=== PATIENT | male | born 1955 | race American Indian/Alaskan Native ===

== ENCOUNTER 2017-02-04 17:00 | Inpatient (IN) | payer SELFPAY ==
[2017-02-04 17:51] LABS: Basophils % (Auto) 0.8 % (0.0-1.8); Eosinophils % (Auto) 0.7 % (0.0-4.3); Hematocrit 40.8 % (35.5-45.6); Hemoglobin 13.5 gm/dl (11.8-15.2); Mean Corpuscular HGB Conc 33 % (32-34); Mean Corpuscular Hemoglobin 29 pg (28-32); Mean Corpuscular Volume 88 fl (84-94); Platelet Count 282 K/mm3 (140-440); Red Blood Count 4.65 M/mm3 (3.65-5.03); Red Cell Distribution Width 15.2 % (13.2-15.2); White Blood Count 8.3 K/mm3 (4.5-11.0)
[2017-02-04 18:10] LABS: Anion Gap 23 mmol/L; BUN/Creatinine Ratio 16.92; Blood Urea Nitrogen 22 mg/dL (9-20); Calcium 9.2 mg/dL (8.4-10.2); Carbon Dioxide 21 mmol/L (22-30); Chloride 101.9 mmol/L (98-107); Glucose 238 mg/dL (75-100); Potassium 4.6 mmol/L (3.6-5.0); Sodium 141 mmol/L (137-145)
--- NOTE | 2017-02-04 19:16 | Emergency Department Report ---
Chief Complaint: Chest Pain Stated Complaint: CP Time Seen by Provider: 02/04/17 19:00 - HPI History of Present Illness: Patient here reports that he has chest pain ongoing on and off for over 2 weeks. He said that he has a history of diabetes and high blood pressure and when he has chest pain his blood pressure goes up. Patient blood pressure is 187/119 denies any headache or visual difficulties. Patient reports that chest pain is towards the attendant feels sore located to the center of his chest and he has some numbness to his left shoulder going down his elbow. He says he is short of breath with exertion. Denies any short of breath at this time. He said his chest pain was worse today but now it just feels sore. He said he took 4 baby aspirin. Patient diabetes and high blood pressure is managed at [facility]. He said he is on lisinopril 10 mg daily and metformin which she took today. He also reported that he was having some nausea. Patient does not have any diagnosis of heart disease and he has not been to doctor for chest pain. Patient denies any history of blood clot in his lungs or legs. Denies any recent surgery, denies cancer, denies hormonal therapy. Heart rate in triage is 94 but an EKG it's 112. - ROS Review of Systems: All systems are negative unless stated in HPI above - Exam Vital Signs: Vital Signs 02/04/17 17:24 Temperature 98.1 F Pulse Rate 94 H Respiratory 16 Rate Blood Pressure 187/119 O2 Sat by Pulse 97 Oximetry Vital Signs 02/04/17 02/04/17 17:24 19:20 Temperature 98.1 F Pulse Rate 94 H 98 H Respiratory 16 Rate Blood Pressure 187/119 O2 Sat by Pulse 97 Oximetry Apical heart rate is at 98 bpm Physical Exam: Gen.: He is a 61-year-old male well-nourished well-developed in no acute distress. Cardiovascular: S1, S2. Regular rate rhythm negative murmur. No chest wall tenderness. Capillary refill is less than 3 seconds. EKG revealed sinus tachycardia at 112. Apical pulse is at 98 bpm. Lungs: Clear to auscultate bilaterally, no rhonchi wheezes or rales. Normal work of breathing. Pulse ox is at 97% on room air MSE screening note: Focused history and physical exam performed. Due to findings the following was ordered: First troponin is negative. CBC stable. BMP stable except CO2 mild decrease at 21, BUN/creatinine elevated at 22 and blood glucose is at 238 which is elevated. ED Medical Decision Making - Lab Data Result diagrams: 02/04/17 17:35 02/04/17 17:35 - Medical Decision Making MDM: Patient screened by provider in triage area. Appropriate protocol initiated and patient to be seen in main ED by ED Disposition for MSE Condition: Stable Referrals: PRIMARY CARE, [Primary Care Provider] - 3-5 Days
--- NOTE | 2017-02-05 01:03 | Emergency Department Report ---
ED Chest Pain HPI - General Chief Complaint: Chest Pain Stated Complaint: CP Time Seen by Provider: 02/04/17 19:15 Source: patient, family, RN notes reviewed Mode of arrival: Wheelchair Limitations: No Limitations - History of Present Illness Initial Comments: This is a 61-year-old male. The patient has previously unknown to me. He reports a past medical history of hypertension, diabetes. The patient presents to the ER with 3 weeks of intermittent chest pain. The chest pain worsens with physical activity. It decreases with rest. It radiates to the left shoulder. When he experiences the chest pain he endorses diaphoresis. There is no leg pain. There is no leg swelling. Patient reports being admitted to the hospital over a little bit of a month ago, for "bacterial infection." He denies hematemesis, and bright red blood per rectum. He has taken aspirin within the past few days, he denies cocaine use. MD Complaint: chest pain -: Gradual Onset: during rest, during exertion Pain Location: left chest Pain Radiation: LUE Severity: moderate Quality: heaviness Consistency: intermittent Improves With: rest Worsens With: exertion re: diaphoresis Aspirin use within the Past 7 Days: (1) Yes - Related Data On Oral Contraceptives: No Allergies Allergy/AdvReac Type Severity Reaction Status Date / Time No Known Allergies Allergy Verified 02/04/17 17:31 Heart Score - HEART Score History: Highly suspicious EKG: Significant ST-depression Age: 45-65 Risk factors: > 3 risk factors or hx of atherosclerotic disease Troponin: > 3x normal limit HEART Score: 9 - Critical Actions Critical Actions: >7 pts:50-65% risk of adverse cardiac event. Early invasive measures ED Review of Systems ROS: Stated complaint: CP Other details as noted in HPI Constitutional: diaphoresis. denies: malaise Eyes: denies: vision change ENT: denies: epistaxis Respiratory: shortness of breath Cardiovascular: chest pain Gastrointestinal: denies: hematemesis, melena, hematochezia Genitourinary: denies: dysuria Musculoskeletal: denies: back pain Skin: denies: lesions Neurological: weakness Psychiatric: anxiety ED Past Medical Hx - Past Medical History Hx Hypertension: Yes Hx Diabetes: Yes - Social History Smoking Status: Current Some Day Smoker ED Physical Exam - General Limitations: No Limitations General appearance: alert, in no apparent distress - Head Head exam: Present: atraumatic, normocephalic - Eye Eye exam: Present: normal appearance, EOMI. Absent: nystagmus - ENT ENT exam: Present: normal exam, normal orophraynx, mucous membranes moist, normal external ear exam - Neck Neck exam: Present: normal inspection, full ROM. Absent: tenderness, meningismus - Respiratory Respiratory exam: Present: normal lung sounds bilaterally. Absent: respiratory distress, wheezes, rales, rhonchi, stridor, chest wall tenderness, accessory muscle use, decreased breath sounds, prolonged expiratory - Cardiovascular Cardiovascular Exam: Present: regular rate, normal rhythm, normal heart sounds. Absent: systolic murmur, diastolic murmur, rubs, gallop - GI/Abdominal GI/Abdominal exam: Present: soft, normal bowel sounds. Absent: distended, tenderness, guarding, rebound, rigid, pulsatile mass - Rectal Rectal exam: Present: deferred - Extremities Exam Extremities exam: Present: normal inspection, full ROM. Absent: normal capillary refill, calf tenderness - Back Exam Back exam: Present: normal inspection, full ROM. Absent: tenderness, CVA tenderness (R), CVA tenderness (L), muscle spasm, paraspinal tenderness, vertebral tenderness - Neurological Exam Neurological exam: Present: alert, oriented X3, normal gait, other (Extraocular movements intact. Tongue midline. No facial droop. Facial sensation intact to light touch in the V1, V2, V3 distribution bilaterally. 5 and 5 strength in 4 extremities.. Sensation is intact to light touch in 4 extremities.). Absent : motor sensory deficit - Psychiatric Psychiatric exam: Present: normal affect, normal mood - Skin Skin exam: Present: warm, dry, intact, normal color. Absent: rash ED Course Vital Signs 02/04/17 02/04/17 02/04/17 17:12 17:14 17:24 Temperature 98.1 F Pulse Rate 106 H 107 H 94 H Respiratory 16 Rate Blood Pressure 202/119 187/119 187/119 Blood Pressure [Left] O2 Sat by Pulse 97 97 97 Oximetry 02/04/17 02/05/17 02/05/17 19:20 00:56 01:00 Temperature 98.3 F Pulse Rate 98 H 113 H 105 H Respiratory 17 Rate Blood Pressure 181/109 Blood Pressure 181/109 [Left] O2 Sat by Pulse 99 Oximetry 02/05/17 02/05/17 02/05/17 01:10 01:20 01:30 Temperature Pulse Rate 107 H 108 H 105 H Respiratory 20 14 21 Rate Blood Pressure 181/109 181/109 181/109 Blood Pressure [Left] O2 Sat by Pulse 99 99 98 Oximetry 02/05/17 02/05/17 02/05/17 01:40 01:50 02:00 Temperature Pulse Rate 108 H 105 H 103 H Respiratory 17 25 H 19 Rate Blood Pressure 158/96 181/109 165/96 Blood Pressure 158/96 [Left] O2 Sat by Pulse 99 99 99 Oximetry 02/05/17 02/05/17 02/05/17 02:10 02:20 02:30 Temperature Pulse Rate 98 H 104 H 87 Respiratory 22 22 22 Rate Blood Pressure 165/96 165/96 165/96 Blood Pressure [Left] O2 Sat by Pulse 99 98 99 Oximetry 02/05/17 02/05/17 02:40 02:50 Temperature Pulse Rate 91 H 85 Respiratory 18 21 Rate Blood Pressure 165/96 165/96 Blood Pressure [Left] O2 Sat by Pulse 98 99 Oximetry - Reevaluation(s) Reevaluation #1: 02/05/17 01:43 No Plavix as per discussion with cardiology SHANITA score - Shanita Score Age > 65: (0) No Aspirin use within the Past 7 Days: (1) Yes 3 or more CAD Risk Factors: (1) Yes 2 or more Angina events in past 24 hrs: (1) Yes Known CAD with more than 50% Stenosis: (0) No Elevated Cardiac Markers: (1) Yes ST Deviation Greater than 0.5mm: (0) No SHANITA Score: 4 ED Medical Decision Making - Lab Data Result diagrams: 02/05/17 01:33 02/04/17 17:35 Vital Signs 02/04/17 02/04/17 17:24 19:20 Temperature 98.1 F Pulse Rate 94 H 98 H Respiratory 16 Rate Blood Pressure 187/119 O2 Sat by Pulse 97 Oximetry Labs 02/04/17 02/04/17 02/04/17 17:35 17:35 20:04 WBC 8.3 RBC 4.65 Hgb 13.5 Hct 40.8 MCV 88 MCH 29 MCHC 33 RDW 15.2 Plt Count 282 Lymph % (Auto) 17.5 [place] % (Auto) 7.2 Eos % (Auto) 0.7 Baso % (Auto) 0.8 Lymph # 1.4 [place] # 0.6 Eos # 0.1 Baso # 0.1 Seg Neutrophils % 73.8 H Seg Neutrophils # 6.1 Sodium 141 Potassium 4.6 Chloride 101.9 Carbon Dioxide 21 L Anion Gap 23 BUN 22 H Creatinine 1.3 Estimated GFR 56 BUN/Creatinine Ratio 16.92 Glucose 238 H Calcium 9.2 Troponin T < 0.010 0.494 H* D Triglycerides 161 H Cholesterol 260 H LDL Cholesterol Direct 178 H HDL Cholesterol 50 Cholesterol/HDL Ratio 5.20 02/04/17 23:23 WBC RBC Hgb Hct MCV MCH MCHC RDW Plt Count Lymph % (Auto) [place] % (Auto) Eos % (Auto) Baso % (Auto) Lymph # [place] # Eos # Baso # Seg Neutrophils % Seg Neutrophils # Sodium Potassium Chloride Carbon Dioxide Anion Gap BUN Creatinine Estimated GFR BUN/Creatinine Ratio Glucose Calcium Troponin T 1.610 H* D Triglycerides Cholesterol LDL Cholesterol Direct HDL Cholesterol Cholesterol/HDL Ratio - EKG Data -: EKG Interpreted by Me - EKG Data 02/05/17 01:41 EKG #1 demonstrates sinus tachycardia, left axis deviation, left ventricular hypertrophy, ST elevation in lead aVR, ST depression in the lateral and inferior leads. EKG #2 demonstrates sinus tachycardia, 102 bpm, left axis deviation, left ventricular hypertrophy, resolution of ST depressions and elevation on previous EKG. Chest pain-free, not consistent with STEMI - Radiology Data Radiology results: image reviewed interpreted by me: X-ray of the chest is negative - Medical Decision Making Differential diagnosis: Acute coronary syndrome, and STEMI Assessment and plan: 61-year-old male with chest pain for 3 weeks, no contraindications to systemic anticoagulation, chest pain-free at this time. Initial EKG concerning for either left main disease or triple vessel disease, repeat EKG demonstrates resolution of abnormalities. Patient will be given aspirin, started on heparin drip, and prescribed as needed nitroglycerin. Case discussed with cardiology, Dr. Villaseñor, the patient's history, physical, laboratory studies, EKG findings were relayed, he requests nothing by mouth. Probable catheterization in the morning. The case is presented to the Hospital physician, Dr. Burrell, who accepts the patient to his service for probable N- STEMI. Critical care attestation.: If time is entered above; I have spent that time in minutes in the direct care of this critically ill patient, excluding procedure time. ED Disposition Clinical Impression: NSTEMI (non-ST elevated myocardial infarction) Disposition: 09 OP ADMIT IP TO THIS HOSP Is pt being admited?: Yes Condition: Good
[2017-02-05] MEDS ORDERED: ASPIRIN PO ONE (01:09)
[2017-02-05] MEDS ORDERED: LOPRESSOR IV ONE ×2 (01:09→02:10)
[2017-02-05] MEDS ORDERED: NITROSTAT SL PRN (01:09)
[2017-02-05] MEDS ORDERED: HEPARIN 10,000 UNITS/10 ML IV ONE (01:09)
[2017-02-05] MEDS ORDERED: TYLENOL PO PRN (01:36)
[2017-02-05] MEDS ORDERED: MORPHINE IV PRN (01:37)
[2017-02-05] MEDS ORDERED: ZOFRAN IV PRN (01:37)
[2017-02-05] MEDS ORDERED: HEPARIN/ 0.45% NACL-25,000 UNIT/500 ML 25,000 UNIT/500 ML BAG IV SCH (02:00)
[2017-02-05 02:01] LABS: Hematocrit 39.5 % (35.5-45.6); Hemoglobin 13.3 gm/dl (11.8-15.2)
[2017-02-05] MEDS ORDERED: ASPIRIN ONE ×2 (02:09→09:18)
[2017-02-05] MEDS ORDERED: HEPARIN ONE (02:10)
[2017-02-05] MEDS ORDERED: MORPHINE ONE (02:11)
[2017-02-05 02:13] LABS: INR 1.03 (0.87-1.13)
[2017-02-05 02:14] LABS: Partial Thromboplastin Time 28.7 Sec. (24.2-36.6)
[2017-02-05] MEDS: NITRO-BID 2% TP SCH ×2 (02:20→07:22)
[2017-02-05] MEDS ORDERED: NITRO-BID 2% TP ONE (02:22)
[2017-02-05] MEDS ORDERED: HEPARIN/ 0.45% NACL-25,000 UNIT/500 ML 25,000 UNIT/500 ML BAG ONE (02:23)
[2017-02-05 06:01] LABS: Creatine Kinase MB 38.8 ng/mL (0.0-4.0)
--- NOTE | 2017-02-05 07:31 | XRay Report ---
ROUTINE CHEST, TWO VIEWS: HISTORY: Chest pain, shortness of breath. The trachea, heart, mediastinal contour, lung sabillon and bony thorax are unremarkable. IMPRESSION: Unremarkable chest x-ray.
--- NOTE | 2017-02-05 07:53 | Consultation ---
History of Present Illness Consult date: 02/05/17 Requesting physician: LG GARCIA Consult reason: abnormal cardiac enzymes, chest pain History of present illness: 61-year-old male with a past medical history of diabetes and hypertension who presented to [facility] emergency department complaining of chest pain that has been intermittent for the past 2 weeks. He reports that with the chest pain occurs he is forced to stop whatever he is doing. He reports that the chest pain occurs with minimal exertion. It is associated with shortness of breath and the inability to walk. A chest x-ray in the emergency department did not reveal any infiltrates or effusion. A 12-lead EKG initially on presentation in the emergency department revealed ST elevations in lead aVR with diffuse ST depressions inferiorly and across the precordium. The patient received some nitroglycerin with improvement of his symptoms and resolution of the ST elevations and ST depressions. Currently the patient is chest pain-free on heparin drip. The patient reports that he has been compliant with his medications however one of the chest pain occurs he checks his blood pressure at home and notices significant increases. In the emergency department the patient's initial blood pressure was 202/119. His troponins increased to 1.97. Past History Past Medical History: diabetes, hypertension Past Surgical History: Other (unknown) Social history: , lives with family Family history: other (sister from cardiac causes) Medications and Allergies Allergies Allergy/AdvReac Type Severity Reaction Status Date / Time No Known Allergies Allergy Verified 02/04/17 17:31 Active Meds: Active Medications Acetaminophen (Tylenol) 650 mg PO Q4H PRN PRN Reason: For Pain/Fever/Headache Last Admin: 02/05/17 07:22 Dose: 650 mg Aspirin (Aspirin) 325 mg PO QDAY KHALIF Heparin Sodium/Sodium Chloride (Heparin/ 0.45% Nacl-25,000 Unit/500 Ml) 25,000 unit in 500 mls @ 20 mls/hr IV TITRATE KHALIF; 1,000 UNITS/HR PRN Reason: Protocol Last Admin: 02/05/17 02:35 Dose: 1,000 units/hr, 20 mls/hr Morphine Sulfate (Morphine) 2 mg IV Q2H PRN PRN Reason: Pain, Moderate (4-6) Nitroglycerin (Nitrostat) 0.4 mg SL .Q5MIN PRN PRN Reason: Chest Pain Nitroglycerin (Nitro-Bid 2%) 1 inch TP QIDNTG [facility] PRN Reason: Protocol Last Admin: 02/05/17 07:22 Dose: 1 inch Ondansetron HCl (Zofran) 4 mg IV Q6H PRN PRN Reason: Nausea And Vomiting Review of Systems Constitutional: no weight loss, no weight gain, no fever, no chills, no sweats Ears, nose, mouth and throat: no decreased hearing, no nose pain, no nasal congestion, no sinus pressure Cardiovascular: chest pain, shortness of breath, dyspnea on exertion, high blood pressure, no orthopnea, no palpitations, no edema, no syncope, no lightheadedness, no leg edema Respiratory: no cough, no excessive sputum, no hemoptysis Gastrointestinal: no abdominal pain, no nausea, no vomiting, no BRBPR Genitourinary Male: no dysuria, no hematuria Rectal: no pain, no bleeding Musculoskeletal: neck pain, no neck stiffness, no limitation of motion, no gait dysfunction Integumentary: no rash, no pruritis Neurological: no weakness, no parathesias, no gait dysfunction Psychiatric: no anxiety, no memory loss Endocrine: no cold intolerance, no heat intolerance Hematologic/Lymphatic: no easy bruising, no easy bleeding Allergic/Immunologic: no urticaria, no allergic rhinitis Physical Examination Vital Signs Pulse BP Pulse Ox 106 H 202/119 97 02/04/17 17:12 02/04/17 17:12 02/04/17 17:12 General appearance: no acute distress HEENT: Positive: PERRL, EOMI Neck: Positive: neck supple, trachea midline Cardiac: Positive: Reg Rate and Rhythm Lungs: Positive: Normal Exam, clear to auscultation Neuro: Positive: Grossly Intact Abdomen: Positive: Unremarkable, Soft, Active Bowel Sounds Skin: Negative: Rash Extremities: Present: normal, lower extr. pulses (2+ dorsalis pedis pulses). Absent: edema Results 02/05/17 01:33 02/04/17 17:35 Cardiac Enzymes 02/05/17 Range/Units 04:53 CK-MB (CK-2) 38.8 H (0.0-4.0) ng/mL Coagulation 02/05/17 Range/Units 01:33 PT 14.0 (12.2-14.9) Sec. INR 1.03 (0.87-1.13) APTT 28.7 (24.2-36.6) Sec. CBC 02/05/17 Range/Units 01:33 Hgb 13.3 (11.8-15.2) gm/dl Hct 39.5 (35.5-45.6) % Plt Count 276 (140-440) K/mm3 - Imaging and Cardiology EKG: report reviewed (initial EKG with ST elevations in aVR and diffuse ST depressions) EKG interpretations - Telemetry EKG Rhythm: Sinus Tachycardia Assessment and Plan 61-year-old gentleman with a past medical history of diabetes and hypertension who presents with a non-ST elevation myocardial infarction. A 12-lead EKG on admission to the hospital revealed ST elevations in lead aVR with diffuse ST depressions. The patient was started on a heparin drip and given oral aspirin. He also has nitropaste in place. Plan for [facility] today Continue heparin gtt ASA start statin Plan for start beta taqueria, carvedilol
--- NOTE | 2017-02-05 08:46 | History and Physical Report ---
CHIEF COMPLAINT: Chest pain. HISTORY OF PRESENT ILLNESS: The patient is a 61-year-old male who has been having intermittent chest pain on and off going on for some weeks. Pain is in the precordial area radiating to the left shoulder area and associated with diaphoresis, shortness of breath, but no nausea or vomiting. Pain was relieved with pain medications. There was also no history of cough or fever. Pain is worse with physical activity and decreases with rest. PAST MEDICAL HISTORY: Pertinent for hypertension, diabetes mellitus, and recent bacterial infection. PAST SURGICAL HISTORY: Unremarkable. FAMILY HISTORY: Noncontributory. SOCIAL HISTORY: The patient smokes cigarettes, does not drink alcohol and does not use illicit drugs. MEDICATIONS: The patient's home medications are not known at this time. ALLERGIES: There are no known drug allergies. REVIEW OF SYSTEMS: CONSTITUTIONAL: There is no fever, no chills. Diaphoresis is present. HEENT: There is no headache or sore throat. CARDIOVASCULAR: There is chest pain, but no orthopnea. RESPIRATORY: Shortness of breath present. No cough. GASTROINTESTINAL: There is no nausea, no vomiting, no abdominal pain, diarrhea or constipation. NEUROLOGICAL: There is no numbness, no dizziness, no altered mental status. MUSCULOSKELETAL: There is no joint pain or swelling. DERMATOLOGICAL: There is no skin rash or itching. GENITOURINARY: There is no dysuria, hematuria, or flank pain. Rest of system review is normal. PHYSICAL EXAMINATION: GENERAL: At the time of exam, the patient was found to be alert, oriented x 3 and not in acute distress. VITAL SIGNS: Shows temperature of 98.1 degrees Fahrenheit, pulse of 94, respirations 16, blood pressure 187/119, O2 sat of 97% on room air. HEENT: Shows pupils to be equal, round, reactive to light and accommodation. Extraocular muscles are intact. NECK: Supple with no JVD or carotid bruit. CARDIOVASCULAR: Shows first and second heart sounds with no gallops or murmur. RESPIRATORY: Shows good air entry on both sides of the lung with no abnormal breath sounds. GASTROINTESTINAL: Show abdomen to be full, soft, and nontender with no organomegaly or rigidity. NEUROLOGIC: Shows no focal deficit. MUSCULOSKELETAL: Shows no joint swelling or tenderness. DERMATOLOGICAL: Show no skin rash. GENITOURINARY: Showing no costovertebral angle tenderness. PERTINENT LABORATORY DATA AND IMAGING STUDIES: The patient had chest x-ray done that shows no acute cardiopulmonary lesion. The patient had an EKG that shows some ST depressions. The patient's lab results show CBC with normal white count, normal hemoglobin and normal hematocrit with CBC differential showing slightly elevated segmented neutrophils of 73.8%. Coagulation studies was unremarkable and the patient's chemistry shows high blood glucose of 238 with a slightly elevated BUN of 22 and normal creatinine as well as slightly decreased GFR of 56. The patient's cardiac enzyme shows elevated troponin level of 1.610. The patient's lipid panel show high triglyceride of 161 with high cholesterol of 260 and elevated LDL cholesterol of 178. IMAGING STUDIES: The patient had a chest x-ray done that showed no cardiopulmonary lesion. DIAGNOSIS: NSTEMI, Non-ST elevated myocardial infarction. PLAN: The patient will be admitted as inpatient to telemetry. We will have cardiac enzymes, troponin, total CK, and CK-MB checked q. 6 hours x 2 more level. The patient will be on aspirin 325 mg by mouth daily and we will continue heparin protocol per Cardiology doctor in the Emergency Room. The patient will also be on Tylenol 650 mg by mouth every 4 hours for fever, headache and will have nitro paste 1 inch to anterior chest wall q. 6 hours. The patient will also be on IV morphine 2 mg every 2 hours as needed for pain and will be on IV Zofran 4 mg every 6 hours for nausea and vomiting. The patient will be on oxygen by nasal cannula at 2 liters per minute and we will continue Cardiology consult including by the Emergency Room with Dr. Aquiles Villaseñor. The patient will be n.p.o. for possible intervention by the household personal assistant in the morning. JOB# [id number] OCN/NTS
[2017-02-05] MEDS ORDERED: NACL 0.9% 500 ML 500 ML ONE (09:33)
[2017-02-05] MEDS ORDERED: HEPARIN/NS 5000 UNIT/500ML(CATH LAB) 1,000 ML IR ONE ×2 (09:43→10:36)
[2017-02-05] MEDS ORDERED: CALAN ONE (09:43)
[2017-02-05] MEDS ORDERED: VERSED ONE (09:44)
[2017-02-05] MEDS ORDERED: SUBLIMAZE ONE (09:44)
[2017-02-05] MEDS: XYLOCAINE 2% INFILTRATI ONE ×2 (09:55→10:07)
[2017-02-05] MEDS: HEPARIN 10,000 UNITS/10 ML ONE ×2 (09:56→10:18)
[2017-02-05] MEDS ORDERED: ASPIRIN PO SCH (10:00)
[2017-02-05] MEDS ORDERED: NITROGLYCERIN SYRINGE 3 ML ONE (10:18)
[2017-02-05] MEDS ORDERED: TRIDIL DRIP 50MG/250ML 50 MG/250 ML BOTTLE ONE (10:19)
[2017-02-05] MEDS ORDERED: XYLOCAINE 2% INFILTRATI ONE (10:36)
[2017-02-05] MEDS ORDERED: NACL 0.9% 1000 ML 1,000 ML ONE ×2 (10:50→15:58)
--- NOTE | 2017-02-05 10:59 | Event Note ---
Date: 02/05/17 S/p [facility] which showed severe left main CAD, IABP placed. Pt to be tx to [facility] for evaluation for CABG. Dr. Sousa to be accepting physician. Ila JARQUIN NP / DR. LASSITER
--- NOTE | 2017-02-05 11:16 | Discharge Summary ---
Providers - Providers Date of Admission: 02/05/17 01:32 Date of discharge: 02/05/17 Attending physician: LG GARCIA 02/05/17 10:56 Consult to Cardiac Rehabilitation [CONS] Routine Reason For Exam: Cardiac Rehab Evaluation Primary care physician: TYLER NUNEZ MD Hospitalization Condition: Good Hospital course: S/p [facility] which showed severe left main CAD and cardiogenic shock, IABP placed. Pt to be tx to [facility] for evaluation for CABG. Dr. Sousa to be accepting physician. Disposition: DC/TX-70 ANOTHER TYPE HLTHCARE Time spent for discharge: 32 minutes Core Measure Documentation - Palliative Care Palliative Care/ Comfort Measures: Not Applicable Exam - Constitutional Vitals: Temp Pulse Resp BP Pulse Ox 98.2 F 82 16 123/66 100 02/05/17 09:12 02/05/17 09:12 02/05/17 09:12 02/05/17 09:12 02/05/17 09:12 Plan Activity: other (bedrest) Diet: low fat, low salt Follow up with: TYLER NUNEZ MD [Primary Care Provider] - 3-5 Days WHIT WALKER MD [Staff Physician] - 7 Days
--- NOTE | 2017-02-05 14:05 | Cardiac Catherization Report ---
CARDIAC CATHETERIZATION The patient is a 61-year-old -[place] gentleman with history of hypertension, diabetes mellitus with significant symptoms of chest pain with minimal exertion, presented with non-STEMI. EKG showed diffuse ST depressions with ST elevation in aVR. Because of elevated cardiac enzymes with unstable angina. Because of non-STEMI, he was scheduled for diagnostic catheterization. The patient is aware of the procedure, potential complications, and alternatives of therapy available. DESCRIPTION OF PROCEDURE: The patient was brought to the catheterization laboratory in a fasting condition. Initially, right wrist area and forearm thoroughly cleansed with chlorhexidine solution. Sterile drapes were applied. Local anesthesia was given using 2% Xylocaine. Right radial artery puncture was made using 21-gauge arterial puncture needle. Subsequently, 5-Indonesian sheath was introduced. Tried to advance the multipurpose catheter and subsequently JR4, 5-Indonesian catheters it could not advance beyond the aortic arch into the ascending aorta. Hence, procedure was aborted and right femoral artery puncture was made after preparing the right groin with chlorhexidine solution and giving local anesthesia. Using 5-Indonesian micropuncture needle, right femoral artery puncture was made and 5-Indonesian sheath was introduced. Using 5-Indonesian multipurpose catheter, left ventriculogram was performed in LUIS projection followed by left coronary angiograms using JL4 catheter and angiograms of the right coronary artery using the JR4 catheter. At the end of the procedure, sheath was removed and hemostasis was achieved in the right groin with manual pressure. The patient was noted to have severe distal left main stenosis. He requires bypass surgery. After discussion with cardiothoracic surgeon, it was felt that the patient would benefit from prophylactic intra-aortic balloon pump. Hence, the left groin was prepared with chlorhexidine solution, sterile drapes were applied and local anesthesia given and 8-Indonesian Sensation plus 50 mL balloon was inserted under fluoroscopy in a standard fashion with good positioning. It was inflating and deflating normally without any difficulty. Good position was noted. Sheath was switched to the left groin. The patient was left on 1:1 intra-aortic balloon pump. It is to be noted, however, the patient's vital signs have been stable in sinus rhythm with blood pressure 120/70. This intra-aortic balloon pump was inserted as a prophylactic prior to his urgent bypass surgery. Discussed with Dr. Gutiérrez, who agreed to transfer the patient. Following findings were noted. HEMODYNAMICS: 1. Opening aortic pressure 143/81, left ventricular pressure 134/21, no gradient across the aortic valve. Estimated ejection fraction 55%. 2. Left ventriculogram done in LUIS projection showed normal size left ventricle with normal contractility. End-diastolic and end-systolic volumes are normal. Mitral regurgitation could not be evaluated. 3. Right coronary artery dominant vessel shows smooth 30% long proximal lesion and distal smooth 60% lesion prior to the PDA. This is dominant vessel with large PDA and LV branches. 4. Left coronary artery arises normally from left coronary cusp. Left coronary cusp showed severe more than 90% concentric stenosis in the distal left main. LAD and ramus branches and circumflex artery and its branch appeared to be angiographically smooth without any significant disease. Collaterals none. 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 RCA also has moderate 60% distal lesion. Considering his clinical presentation with coronary anatomy with history of diabetes and hypertension, it was felt that the patient would benefit from urgent revascularization surgically. Hence, the patient being transferred to [facility] for urgent aortocoronary bypass surgery. The patient's accepting physician is Dr. Gutiérrez at [facility]. Findings were discussed with the patient and he understands. No family members available. JOB# [id number] NAOMI/DARRICK GOLDSTEIN
[2017-02-05 14:36] VITALS: BP 115/67
--- NOTE | 2017-02-05 14:58 | Event Note ---
Date: 02/05/17 [facility] diversion. [facility] / DR. LASSITER
[2017-02-06] MEDS ORDERED: Fluarix Quad 2017-2018(36 MOS+) IM ONE (12:00)
== END 2017-02-05 15:04 | disposition short-term general hospital (02) | DRG 270 ==
LOC: ED 17:00 → 4A 02-05 01:32
PROVIDERS: ADMIT Internal Medicine; ATTEND Internal Medicine
PROC: 4A023N7 Measurement of Cardiac Sampling and Pressure, Left Heart, Percutaneous Approach (ICD-10-PCS; principal; 2017-02-05)
PROC: 5A02210 Assistance with Cardiac Output using Balloon Pump, Continuous (ICD-10-PCS; 2017-02-05)
PROC: B2151ZZ Fluoroscopy of Left Heart using Low Osmolar Contrast (ICD-10-PCS; 2017-02-05)
PROC: B2111ZZ Fluoroscopy of Multiple Coronary Arteries using Low Osmolar Contrast (ICD-10-PCS; 2017-02-05)
DX: I21.4 Non-ST elevation (NSTEMI) myocardial infarction (principal); R57.0 Cardiogenic shock; I25.10 Atherosclerotic heart disease of native coronary artery without angina pectoris; E11.9 Type 2 diabetes mellitus without complications; I10 Essential (primary) hypertension; F41.9 Anxiety disorder, unspecified; F17.210 Nicotine dependence, cigarettes, uncomplicated
CPT/HCPCS: 33967; 36415; 71020; 80048; 80061; 82550; 82553; 82962; 84484; 85014; 85018; 85025; 85049; 85610; 85730; 93005; 93010; 93458; 96374; 96375; 99285; C1894; J1644; J2250; J2270; J3010; J7030; J7040; Q9967